=== PATIENT | female | born 1960 | race Caucasian/White ===

== ENCOUNTER → 2016-04-02 | Outpatient (CLI) | payer OTHER | LOC: RAD 07:06 | PROVIDERS: ATTEND Physician Assistant | DX: M54.2 Cervicalgia (principal); M47.892 Other spondylosis, cervical region | CPT/HCPCS: 72141 ==

== ENCOUNTER 2016-06-16 08:21 | Emergency (ER) | payer OTHER ==
--- NOTE | 2016-06-16 09:27 | ER Document Report ---
ED Extremity Problem, Upper - General Chief Complaint: Arm Pain Stated Complaint: ARM PAIN Mode of Arrival: Ambulatory Information source: Patient Notes: 55 y/o F presents to ED c/o left arm pain. Pt reports hx of chronic neck and back pain followed by pain management and spine Dr. Hernandez. Reports over the last week pain to left has worsened. States pain seems to slightly improve when she raises her hand. Reports has had pain and paresthesias to left arm for approximately 4 years. Denies fever, new injury or trauma, color changes, chest pain, or sob. Reports had MRI done 3 months ago and has appointment this week states needs something for relief of pain until her appointment. TRAVEL OUTSIDE OF THE [place] IN LAST 30 DAYS: No - HPI Patient complains to provider of: Pain, Arm Recent injury: No Quality of pain: Achy, Sharp Severity of pain: Moderate Pain Level: 3 Exacerbated by: Nothing Relieved by: Positioning Similar symptoms previously: Yes Recently seen / treated by doctor: No - Related Data Allergies/Adverse Reactions: acetaminophen [From Darvocet-N] Allergy (Verified 06/16/16 08:29) propoxyphene [From Darvocet-N] Allergy (Verified 06/16/16 08:29) ibuprofen Adverse Reaction (Verified 06/16/16 08:29) Past Medical History - General Information source: Patient - Social History Smoking Status: Current Every Day Smoker Chew tobacco use (# tins/day): No Frequency of alcohol use: None Drug Abuse: None Lives with: Family Family History: Reviewed & Not Pertinent Patient has suicidal ideation: No Patient has homicidal ideation: No - Past Medical History Cardiac Medical History: Reports: Hx Hypertension Renal/ Medical History: Denies: Hx Peritoneal Dialysis Musculoskeltal Medical History: Reports Hx Arthritis, Reports Hx Musculoskeletal Deformity Surgical Hx: Negative - Immunizations Hx Diphtheria, Pertussis, Tetanus Vaccination: Yes Review of Systems - Review of Systems Constitutional: No symptoms reported EENT: No symptoms reported Cardiovascular: No symptoms reported Respiratory: No symptoms reported Gastrointestinal: No symptoms reported Genitourinary: No symptoms reported Female Genitourinary: No symptoms reported Musculoskeletal: See HPI Skin: No symptoms reported Hematologic/Lymphatic: No symptoms reported Neurological/Psychological: No symptoms reported -: Yes All other systems reviewed and negative Physical Exam - Vital signs Vitals: Temp Pulse Resp BP Pulse Ox 97.7 F 87 20 151/91 H 96 04/08/17 08:26 06/16/16 08:26 06/16/16 08:26 06/16/16 08:26 06/16/16 08:26 - General General appearance: Appears well, Alert In distress: None - HEENT Head: Normocephalic, Atraumatic Eyes: Normal Conjunctiva: Normal Pupils: PERRL - Respiratory Respiratory status: No respiratory distress Chest status: Nontender Breath sounds: Normal - CTAB Chest palpation: Normal - Cardiovascular Rhythm: Regular Heart sounds: Normal auscultation Murmur: No Pulses: Normal: Radial Normal capillary refill: Yes - Extremities General upper extremity: Normal inspection, Nontender, Normal color, Normal ROM , Normal strength, Normal temperature. No: Edema General lower extremity: Normal inspection, Nontender, Normal color, Normal ROM , Normal strength, Normal temperature, Normal weight bearing. No: Edema, Marek' s sign Shoulder: Normal, Nontender Arm: Tender - mild diffuse tenderness with palpation to left upper arm at humerus area. no swelling, instability, bruising, swelling. distal motor and neurovascular function intact with immediate capillary refill and sensation intact.. 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 Reviewed the patient's MRI which shows cervical spondylosis, most pronounced at C4-5 and C6-7, no thomas cord compression but prominent disc osteophyte complexes are appreciated with associated foraminal narrowing as well per radiologist. Patient was given dose of IM dexamethasone. Patient appears stable for discharge and agrees with home care, follow-up, and ED return precautions. Patient presentation, findings, and ED care discussed with ED physician Dr. Martinez who concurs with evaluation and treatment. - Vital Signs Vital signs: Temp Pulse Resp BP Pulse Ox 98.0 F 85 18 142/88 H 98 06/16/16 09:55 06/16/16 09:55 06/16/16 09:55 06/16/16 09:55 06/16/16 09:55 Discharge - Discharge Clinical Impression: Arm paresthesia, left, Left arm pain Condition: Stable Disposition: HOME, SELF-CARE Instructions: Arm Pain, Nonspecific ([facility]), Neuralgia ([facility]), Neuropathy ([facility]), Steroid Medication Injection Additional Instructions: Follow-up with your primary care provider and ancillary specialist on Saturday. Return to the emergency department for any worsening symptoms or concerns. Forms: Elevated Blood Pressure Referrals: ALEX RICHARDSON PA-C [Primary Care Provider] - Follow up tomorrow LUPE HERNANDEZ MD [NO LOCAL MD] - 06/18/16
[2016-06-16] MEDS ORDERED: DEXAMETHASONE SOD PHOS INJ 10 MG/1 ML VIAL IM ONE (09:30)
--- NOTE | 2016-06-16 10:01 | EKG REPORT ---
SEVERITY:- BORDERLINE ECG - SINUS RHYTHM : Confirmed by: Vika Moe 16-Jun-2016 10:00:28
[2016-06-16 10:05] VITALS: BP 142/88
== END 2016-06-16 09:55 | disposition home or self-care (01) ==
LOC: ER 08:21
DX: R20.0 Anesthesia of skin (principal); M79.602 Pain in left arm; F17.200 Nicotine dependence, unspecified, uncomplicated
CPT/HCPCS: 93005; 99283; 96372; 93010; J1100

== ENCOUNTER 2016-06-26 02:49 | Emergency (ER) | payer OTHER ==
--- NOTE | 2016-06-26 06:58 | ER Document Report ---
ED General - General Chief Complaint: Laceration Stated Complaint: FINGER INJURY TRAVEL OUTSIDE OF THE [place] IN LAST 30 DAYS: No - HPI Patient complains to provider of: left little finger laceration Notes: Patient states she had a knife on her nightstand turned over this morning cutting left middle finger states she came in because the finger continued to bleed. Patient was given a bandage here in the ER. At this time there is no active bleeding. Patient states tetanus is up-to-date. Denies any other injuries. - Related Data Allergies/Adverse Reactions: acetaminophen [From Darvocet-N] Allergy (Verified 06/16/16 08:29) propoxyphene [From Darvocet-N] Allergy (Verified 06/16/16 08:29) ibuprofen Adverse Reaction (Verified 06/16/16 08:29) Past Medical History - Social History Smoking Status: Unknown if Ever Smoked Family History: Reviewed & Not Pertinent Patient has suicidal ideation: No Patient has homicidal ideation: No - Past Medical History Cardiac Medical History: Reports: Hx Hypertension Renal/ Medical History: Denies: Hx Peritoneal Dialysis Musculoskeltal Medical History: Reports Hx Arthritis, Reports Hx Musculoskeletal Deformity - Immunizations Hx Diphtheria, Pertussis, Tetanus Vaccination: Yes Review of Systems - Review of Systems Constitutional: No symptoms reported EENT: No symptoms reported Cardiovascular: No symptoms reported Respiratory: No symptoms reported Gastrointestinal: No symptoms reported Genitourinary: No symptoms reported Female Genitourinary: No symptoms reported Musculoskeletal: No symptoms reported Skin: Other - Finger laceration Hematologic/Lymphatic: No symptoms reported Neurological/Psychological: No symptoms reported Physical Exam - Vital signs Vitals: Temp Pulse Resp BP Pulse Ox 98.3 F 72 18 152/96 H 98 06/26/16 02:59 06/26/16 02:59 06/26/16 02:59 06/26/16 02:59 06/26/16 02:59 Interpretation: Normal - General General appearance: Appears well, Alert - HEENT Head: Normocephalic, Atraumatic Eyes: Normal Pupils: PERRL - Respiratory Respiratory status: No respiratory distress Chest status: Nontender Breath sounds: Normal Chest palpation: Normal - Cardiovascular Rhythm: Regular Heart sounds: Normal auscultation Murmur: No - Abdominal Inspection: Normal Distension: No distension Bowel sounds: Normal Tenderness: Nontender Organomegaly: No organomegaly - Back Back: Normal, Nontender - Extremities General upper extremity: Normal inspection, Nontender, Normal color, Normal ROM , Normal temperature, Other - Patient has a left middle finger laceration at the tip superficial no bleeding at this time. Refill range of motion intact General lower extremity: Normal inspection, Nontender, Normal color, Normal ROM , Normal temperature, Normal weight bearing. No: Marek's sign - Neurological Neuro grossly intact: Yes Cognition: Normal Orientation: AAOx4 [place] Coma Scale Eye Opening: Spontaneous [place] Coma Scale Verbal: Oriented [place] Coma Scale Motor: Obeys Commands [place] Coma Scale Total: 15 Speech: Normal Motor strength normal: LUE, RUE, LLE, RLE Sensory: Normal - Psychological Associated symptoms: Normal affect, Normal mood - Skin Skin Temperature: Warm Skin Moisture: Dry Skin Color: Normal Course - Re-evaluation Re-evalutation: 06/26/16 07:56 Steri-Strips and Dermabond were placed over the wound for closure. Patient was given wound care instructions patient discharged home - Vital Signs Vital signs: Temp Pulse Resp BP Pulse Ox 98.3 F 78 18 150/96 H 96 06/26/16 06:59 06/26/16 06:59 06/26/16 06:59 06/26/16 06:59 06/26/16 06:59 Discharge - Discharge Clinical Impression: Laceration of finger Qualifiers: Encounter type: initial encounter Qualified Code(s): S61.219A - Laceration without foreign body of unspecified finger without damage to nail, initial encounter Condition: Good Disposition: HOME, SELF-CARE Instructions: Care of Steri-Strip Closure ([facility]), Skin Adhesive Closure ([facility]) Additional Instructions: Follow-up with your primary care physician. Return to the ER symptoms worsen. Referrals: LILLI RICHARDSON CNM [Primary Care Provider] - Follow up in 3-5 days
[2016-06-26 07:26] VITALS: BP 150/96
== END 2016-06-26 06:59 | disposition home or self-care (01) ==
LOC: ER 02:49
DX: S61.213A Laceration without foreign body of left middle finger without damage to nail, initial encounter (principal); W26.0XXA Contact with knife, initial encounter; I10 Essential (primary) hypertension; Z88.6 Allergy status to analgesic agent; Z88.5 Allergy status to narcotic agent
CPT/HCPCS: 99282

== ENCOUNTER → 2016-06-26 | Outpatient (CLI) | payer OTHER | LOC: RAD 07:16 | PROVIDERS: ATTEND Physician Assistant | DX: M54.16 Radiculopathy, lumbar region (principal) | CPT/HCPCS: 72148 ==